=== PATIENT | male | born 1970 | race Caucasian/White ===

== ENCOUNTER 2016-10-01 19:53 | Emergency (ER) | payer OTHER ==
[2016-10-01 20:09] VITALS: BP 135/93; PULSE 88; RESP 18; TEMP 98.6
[2016-10-01] MEDS ORDERED: PROPARACAINE 0.5% OPHTH DROPS 15 ML BTL RIGHT EYE STA (20:10)
[2016-10-01] MEDS ORDERED: TOBRAMYCIN 0.3% OPHTH DROPS 5 ML BTL LEFT EYE STA (20:28)
--- NOTE | 2016-10-01 20:32 | ED ---
General Adult HPI - General Chief complaint: Eye Problems Stated complaint: FB Eye Time Seen by Provider: 10/01/16 20:10 Source: patient, RN notes reviewed Mode of arrival: ambulatory Limitations: no limitations - History of Present Illness Initial comments: Patient 46-year-old male who presents emergency room today with chief complaint of a foreign body to the left eye. 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 States felt like something got into his eye but he thought maybe it was just a stick welder's flash. Patient states that still having irritation today he can see something in his eye. States tetanus is up-to- date. Denies any other complaints or associated symptoms. Patient denies any recent fever, chills, shortness of breath, chest pain, back pain, abdominal pain , nausea or vomiting, numbness or tingling, dysuria or hematuria, constipation or diarrhea, headaches or visual changes, or any other complaints. - Related Data Previous Rx's Medication Instructions Recorded Docusate [Colace] 100 mg PO BID #20 cap 07/26/16 HYDROcodone/APAP 5-325MG [[place] 1 each PO Q6H PRN #30 tab 07/26/16 5-325] Ibuprofen [Motrin] 400 mg PO Q6HR PRN #30 tab 07/26/16 LORazepam [Ativan] 0.5 mg PO Q8HR PRN #20 tab 07/26/16 Nystatin 100,000 Unit/ml Susp 500,000 unit PO QID #60 cup 07/26/16 [Mycostatin Oral Susp] Pantoprazole [Protonix] 40 mg PO AC-BRKFST #15 tablet. 07/26/16 cloNIDine HCL [Catapres] 0.1 mg PO TID #90 tab 07/26/16 Tobramycin 0.3% Ophth Soln [Tobrex 1 - 2 drop BOTH EYES QID 7 Days 10/01/16 0.3% Ophth Soln] Allergies Allergy/AdvReac Type Severity Reaction Status Date / Time No Known Allergies Allergy Verified 09/19/16 09:00 Review of Systems ROS Statement: Those systems with pertinent positive or pertinent negative responses have been documented in the HPI. ROS Other: All systems not noted in ROS Statement are negative. Past Medical History Past Medical History: Osteoarthritis (OA) Additional Past Medical History / Comment(s): Ibs, degenerative disc disease, BACK PAIN, PAST FX L4-L5 VERTEBRE, KIDNEY STONE,HEAD INJURY/CONCUSSION, SEIZURES - BUT HAS'NT BEEN TAKING MEDS(D/T FINANCIAL REASON/COST), RECENTLY FINISHED 7 DAYS OF CIPRO FOR KIDNEY STONE?UTI,lt.index finger wound History of Any Multi-Drug Resistant Organisms: None Reported Past Surgical History: Cholecystectomy, Orthopedic Surgery Additional Past Surgical History / Comment(s): LT KNEE SCOPE,COLONOSCPY/ POLYPECTOMT(BENIGN) Past Anesthesia/Blood Transfusion Reactions: No Reported Reaction Past Psychological History: Depression, PTSD Additional Psychological History / Comment(s): Positive tobacco use, occasional marijuana use. Denies significant alcohol use. No international travel. Was in the [employer] and in the [employer]. 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 Pet cat within the home. Is not , may have children but is not sure Smoking Status: Current some day smoker Past Alcohol Use History: Occasional Additional Past Alcohol Use History / Comment(s): HAS SMOKED FOR 31 YEARS, 1 PPD Past Drug Use History: Marijuana Additional Drug Use History / Comment(s): DAILY USE - Past Family History Father Family Medical History: Diabetes Mellitus, Hyperlipidemia, Hypertension Mother Additional Family Medical History / Comment(s): ? ANUERYSM General Exam - General Exam Comments Initial Comments: General: The patient is awake and alert, in no distress, and does not appear acutely ill. Eye: Pupils are equal, round and reactive to light, extra-ocular movements are intact. No nystagmus. There is normal conjunctiva bilaterally. No signs of icterus. Ears, nose, mouth and throat: There are moist mucous membranes and no oral lesions. Neck: The neck is supple, there is no tenderness or JVD. Cardiovascular: There is a regular rate and rhythm. No murmur, rub or gallop is appreciated. Respiratory: Lungs are clear to auscultation, respirations are non-labored, breath sounds are equal. No wheezes, stridor, rales, or rhonchi. Gastrointestinal: Soft, non-distended, non-tender abdomen without masses or organomegaly noted. There is no rebound or guarding present. No CVA tenderness. Bowel sounds are unremarkable. Musculoskeletal: Normal ROM, no tenderness. Strength 5/5. Sensation intact. Pulses equal bilaterally 2+. Neurological: A&O x 3. CN II-XII intact, There are no obvious motor or sensory deficits. Coordination appears grossly intact. Speech is normal. Skin: Skin is warm and dry and no rashes or lesions are noted. Psychiatric: Cooperative, appropriate mood & affect, normal judgment. Limitations: no limitations Course Vital Signs 10/01/16 20:07 Temperature 98.6 F Pulse Rate 88 Respiratory 18 Rate Blood Pressure 135/93 O2 Sat by Pulse 97 Oximetry Procedures - Procedures Initial comment: Patient's left eye was anesthetized locally with proparacaine. This did relieve his symptoms. Patient's left eye was then stained with forcing checked underneath Thompson lamp revealing a metallic foreign body centrally over the pupil. Liberty brush was used to remove foreign body and rust ring. Patient tolerated well. Medical Decision Making - Medical Decision Making Patient advised follow-up with ophthalmology over the next 2 days of symptoms have not completely resolved. Advised return to emergency room for new concerns. Has been started on antibiotic drops in the emergency room. Disposition Clinical Impression: Corneal foreign body Disposition: HOME SELF-CARE Condition: Good Instructions: Eye Foreign Body (ED) Additional Instructions: Please follow-up the health spa manager in 2 days if symptoms are not completely resolved. Please use antibiotic drops as prescribed. Please return to emergency room for any other concerns. Prescriptions: Tobramycin 0.3% Ophth Soln [Tobrex 0.3% Ophth Soln] 1 - 2 drop BOTH EYES QID 7 Days Referrals: Mishel Chance MD [Primary Care Provider] - 1-2 days Fransico King MD [STAFF PHYSICIAN] - 1-2 days Time of Disposition: 20:30
== END 2016-10-01 20:43 | disposition home or self-care (01) ==
LOC: EC 19:53
DX: T15.02XA Foreign body in cornea, left eye, initial encounter (principal); F17.200 Nicotine dependence, unspecified, uncomplicated
CPT/HCPCS: 65220; 99283

== ENCOUNTER 2016-12-27 04:26 | Observation (INO) | payer OTHER ==
[2016-12-27] MEDS ORDERED: NITROGLYCERIN OINT 1 INCH/GM PACKET TOPICAL STA (04:37)
[2016-12-27] MEDS ORDERED: ASPIRIN 81 MG CHEW PO STA (04:37)
[2016-12-27] MEDS ORDERED: SODIUM CHLORIDE 0.9% 500 ML IV STA (04:37)
--- NOTE | 2016-12-27 04:41 | ED ---
General Adult HPI - General Chief complaint: Arrhythmia/Palpitations Stated complaint: cardiac concerns Time Seen by Provider: 12/27/16 04:26 Source: patient, RN notes reviewed Mode of arrival: ambulatory Limitations: no limitations - History of Present Illness Initial comments: This is a 46-year-old male presents emergency room complaining that he feels tightness in his chest feels heartbeat skipping and states his little pain in his left arm. Patient states it started about 20 minutes prior to arrival. Patient states he is a smoker but denies high blood pressure diabetes and high cholesterol. Patient denies any family history of her proximal. Patient denies any diaphoresis associated with this. Patient denies any shortness of breath or difficulty breathing. Patient denies any nausea with this. Patient denies abdominal pain patient denies any vomiting or diarrhea. Patient denies any recent fever chills or cough. Patient denies headache patient denies any numbness weakness per patient denies any lightheadedness dizziness or near syncopal episode. - Related Data Previous Rx's Medication Instructions Recorded Docusate [Colace] 100 mg PO BID #20 cap 07/26/16 HYDROcodone/APAP 5-325MG [[place] 1 each PO Q6H PRN #30 tab 07/26/16 5-325] Ibuprofen [Motrin] 400 mg PO Q6HR PRN #30 tab 07/26/16 LORazepam [Ativan] 0.5 mg PO Q8HR PRN #20 tab 07/26/16 Nystatin 100,000 Unit/ml Susp 500,000 unit PO QID #60 cup 07/26/16 [Mycostatin Oral Susp] Pantoprazole [Protonix] 40 mg PO AC-BRKFST #15 tablet.dr 07/26/16 cloNIDine HCL [Catapres] 0.1 mg PO TID #90 tab 07/26/16 Tobramycin 0.3% Ophth Soln [Tobrex 1 - 2 drop BOTH EYES QID 7 Days 10/01/16 0.3% Ophth Soln] Allergies Allergy/AdvReac Type Severity Reaction Status Date / Time No Known Allergies Allergy Verified 12/27/16 04:30 Review of Systems ROS Statement: Those systems with pertinent positive or pertinent negative responses have been documented in the HPI. ROS Other: All systems not noted in ROS Statement are negative. Past Medical History Past Medical History: Osteoarthritis (OA) Additional Past Medical History / Comment(s): Ibs, degenerative disc disease, BACK PAIN, PAST FX L4-L5 VERTEBRE, KIDNEY STONE,HEAD INJURY/CONCUSSION, SEIZURES - BUT HAS'NT BEEN TAKING MEDS(D/T FINANCIAL REASON/COST), RECENTLY FINISHED 7 DAYS OF CIPRO FOR KIDNEY STONE?UTI,lt.index finger wound History of Any Multi-Drug Resistant Organisms: None Reported Past Surgical History: Cholecystectomy, Orthopedic Surgery Additional Past Surgical History / Comment(s): LT KNEE SCOPE,COLONOSCPY/ POLYPECTOMT(BENIGN) Past Anesthesia/Blood Transfusion Reactions: No Reported Reaction Past Psychological History: Depression, PTSD Additional Psychological History / Comment(s): Positive tobacco use, occasional marijuana use. Denies significant alcohol use. No international travel. Was in the [employer] and [employer] and in the [employer]. 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 Pet cat within the home. Is not , may have children but is not sure Smoking Status: Current some day smoker Past Alcohol Use History: Occasional Additional Past Alcohol Use History / Comment(s): HAS SMOKED FOR 31 YEARS, 1 PPD Past Drug Use History: Marijuana Additional Drug Use History / Comment(s): DAILY USE - Past Family History Father Family Medical History: Diabetes Mellitus, Hyperlipidemia, Hypertension Mother Additional Family Medical History / Comment(s): ? ANUERYSM General Exam - General Exam Comments Initial Comments: GENERAL: Patient is well-developed and well-nourished. Patient is nontoxic and well- hydrated and is in mild distress. ENT: Neck is soft and supple. No significant lymphadenopathy is noted. Oropharynx is clear. Moist mucous membranes. Neck has full range of motion without eliciting any pain. EYES: The sclera were anicteric and conjunctiva were pink and moist. Extraocular movements were intact and pupils were equal round and reactive to light. Eyelids were unremarkable. PULMONARY: Unlabored respirations. Good breath sounds bilaterally. No audible rales rhonchi or wheezing was noted. CARDIOVASCULAR: There is a regular rate and rhythm without any murmurs gallops or rubs. ABDOMEN: Soft and nontender with normal bowel sounds. No palpable organomegaly was noted. There is no palpable pulsatile mass. SKIN: Skin is clear with no lesions or rashes and otherwise unremarkable. NEUROLOGIC: Patient is alert and oriented x3. Cranial nerves II through XII are grossly intact. Motor and sensory are also intact. Normal speech, volume and content. Symmetrical smile. MUSCULOSKELETAL: Normal extremities with adequate strength and full range of motion. No lower extremity swelling or edema. No calf tenderness. LYMPHATICS: No significant lymphadenopathy is noted PSYCHIATRIC: Normal psychiatric evaluation. Normal interpersonal interactions appears functionally intact in deals appropriately with others. No signs of depression. No signs of anxiety. Limitations: no limitations Course Vital Signs 12/27/16 12/27/16 04:27 04:50 Temperature 98.6 F Pulse Rate 85 75 Respiratory 16 18 Rate Blood Pressure 199/111 157/92 O2 Sat by Pulse 100 96 Oximetry Medical Decision Making - Medical Decision Making EKG shows a sinus rhythm with occasional PAC at 72 bpm [place] interval 158 QRSs 110 QT intervals 412 QTC is 451. Patient EKG shows no ST segment elevation or depression. Patient's chest x-ray shows no acute abnormality. Patient's pain seemed to subside a little after the patient received nitroglycerin paste. I spoke with Dr. Correa he agreed to admit the patient admitted the patient and wrote admitting orders and consult cardiology - Lab Data Result diagrams: 12/27/16 04:45 12/27/16 04:45 Lab Results 12/27/16 12/27/16 12/27/16 Range/Units 04:45 04:45 04:45 WBC 11.7 H (3.8-10.6) k/uL RBC 4.80 (4.30-5.90) m/uL Hgb 15.7 (13.0-17.5) gm/dL Hct 45.4 (39.0-53.0) % MCV 94.5 (80.0-100.0) fL MCH 32.6 (25.0-35.0) pg MCHC 34.5 (31.0-37.0) g/dL RDW 13.0 (11.5-15.5) % Plt Count 278 (150-450) k/uL Neutrophils % 52 % Lymphocytes % 35 % Monocytes % 7 % Eosinophils % 3 % Basophils % 1 % Neutrophils # 6.1 (1.3-7.7) k/uL Lymphocytes # 4.1 (1.0-4.8) k/uL Monocytes # 0.8 (0-1.0) k/uL Eosinophils # 0.4 (0-0.7) k/uL Basophils # 0.1 (0-0.2) k/uL PT (9.0-12.0) sec INR (<1.1) APTT (22.0-30.0) sec Sodium 140 (137-145) mmol/L Potassium 3.6 (3.5-5.1) mmol/L Chloride 105 (98-107) mmol/L Carbon Dioxide 23 (22-30) mmol/L Anion Gap 12 mmol/L BUN 8 L (9-20) mg/dL Creatinine 0.90 (0.66-1.25) mg/dL Est GFR (MDRD) Af Amer >60 (>60 ml/min/1.73 sqM) Est GFR (MDRD) Non-Af >60 (>60 ml/min/1.73 sqM) Glucose 82 (74-99) mg/dL Calcium 9.3 (8.4-10.2) mg/dL Magnesium 1.9 (1.6-2.3) mg/dL Total Bilirubin 0.4 (0.2-1.3) mg/dL AST 21 (17-59) U/L ALT 32 (21-72) U/L Alkaline Phosphatase 70 (38-126) U/L Total Creatine Kinase 143 (55-170) U/L CK-MB (CK-2) 0.9 (0.0-2.4) ng/mL CK-MB (CK-2) Rel Index 0.6 Troponin I <0.012 (0.000-0.034) ng/mL Total Protein 7.0 (6.3-8.2) g/dL Albumin 4.1 (3.5-5.0) g/dL TSH 4.510 (0.465-4.680) mIU/L Free T4 1.29 (0.78-2.19) ng/dL Urine Opiates Screen (NotDetected) Ur Oxycodone Screen (NotDetected) Urine Methadone Screen (NotDetected) Ur Propoxyphene Screen (NotDetected) Ur Barbiturates Screen (NotDetected) U Tricyclic Antidepress (NotDetected) Ur Phencyclidine Scrn (NotDetected) Ur Amphetamines Screen (NotDetected) U Methamphetamines Scrn (NotDetected) U Benzodiazepines Scrn (NotDetected) Urine Cocaine Screen (NotDetected) U Marijuana (THC) Screen (NotDetected) 12/27/16 12/27/16 Range/Units 04:45 05:10 WBC (3.8-10.6) k/uL RBC (4.30-5.90) m/uL Hgb (13.0-17.5) gm/dL Hct (39.0-53.0) % MCV (80.0-100.0) fL MCH (25.0-35.0) pg MCHC (31.0-37.0) g/dL RDW (11.5-15.5) % Plt Count (150-450) k/uL Neutrophils % % Lymphocytes % % Monocytes % % Eosinophils % % Basophils % % Neutrophils # (1.3-7.7) k/uL Lymphocytes # (1.0-4.8) k/uL Monocytes # (0-1.0) k/uL Eosinophils # (0-0.7) k/uL Basophils # (0-0.2) k/uL PT 10.9 (9.0-12.0) sec INR 1.1 (<1.1) APTT 26.2 (22.0-30.0) sec Sodium (137-145) mmol/L Potassium (3.5-5.1) mmol/L Chloride (98-107) mmol/L Carbon Dioxide (22-30) mmol/L Anion Gap mmol/L BUN (9-20) mg/dL Creatinine (0.66-1.25) mg/dL Est GFR (MDRD) Af Amer (>60 ml/min/1.73 sqM) Est GFR (MDRD) Non-Af (>60 ml/min/1.73 sqM) Glucose (74-99) mg/dL Calcium (8.4-10.2) mg/dL Magnesium (1.6-2.3) mg/dL Total Bilirubin (0.2-1.3) mg/dL AST (17-59) U/L ALT (21-72) U/L Alkaline Phosphatase (38-126) U/L Total Creatine Kinase (55-170) U/L CK-MB (CK-2) (0.0-2.4) ng/mL CK-MB (CK-2) Rel Index Troponin I (0.000-0.034) ng/mL Total Protein (6.3-8.2) g/dL Albumin (3.5-5.0) g/dL TSH (0.465-4.680) mIU/L Free T4 (0.78-2.19) ng/dL Urine Opiates Screen Not Detected (NotDetected) Ur Oxycodone Screen Not Detected (NotDetected) Urine Methadone Screen Not Detected (NotDetected) Ur Propoxyphene Screen Not Detected (NotDetected) Ur Barbiturates Screen Not Detected (NotDetected) U Tricyclic Antidepress Not Detected (NotDetected) Ur Phencyclidine Scrn Not Detected (NotDetected) Ur Amphetamines Screen Not Detected (NotDetected) U Methamphetamines Scrn Not Detected (NotDetected) U Benzodiazepines Scrn Not Detected (NotDetected) Urine Cocaine Screen Not Detected (NotDetected) U Marijuana (THC) Screen Detected H (NotDetected) Disposition Clinical Impression: Chest pain, PAC (premature atrial contraction) Disposition: ADMITTED IP TO THIS HOSP Referrals: Mishel Chance MD [Primary Care Provider] - 1-2 days Time of Disposition: 06:08
[2016-12-27 05:04] LABS: Basophils # (A) 0.1 k/uL (0-0.2); Basophils % (A) 1 %; CH 33.2; CHCM 35.2; Eosinophils # (A) 0.4 k/uL (0-0.7); Eosinophils % (A) 3 %; HCT 45.4 % (39.0-53.0); HDW 2.44; HGB 15.7 gm/dL (13.0-17.5); Luc # (Auto) 0.28; Luc % (Auto) 2; Lymphocytes # (A) 4.1 k/uL (1.0-4.8); Lymphocytes % (A) 35 %; MCH 32.6 pg (25.0-35.0); MCHC 34.5 g/dL (31.0-37.0); MCV 94.5 fL (80.0-100.0); Mean Platelet Volume 6.8; Monocytes # (A) 0.8 k/uL (0-1.0); Monocytes % (A) 7 %; Neutrophils # (A) 6.1 k/uL (1.3-7.7); Neutrophils % (A) 52 %; WBC 11.7 k/uL (3.8-10.6); WBC (Perox) 11.35
[2016-12-27 05:13] LABS: ALT 32 U/L (21-72); AST 21 U/L (17-59); Alkaline Phosphatase 70 U/L (38-126); Anion Gap 12 mmol/L; Blood Urea Nitrogen 8 mg/dL (9-20); Calcium 9.3 mg/dL (8.4-10.2); Carbon Dioxide 23 mmol/L (22-30); Chloride 105 mmol/L (98-107); Glucose 82 mg/dL (74-99); Magnesium 1.9 mg/dL (1.6-2.3); Non-African American GFR(MDRD) >60 (>60 ml/min/1.73 sqM); Potassium 3.6 mmol/L (3.5-5.1); Sodium 140 mmol/L (137-145); Total Bilirubin 0.4 mg/dL (0.2-1.3)
[2016-12-27 05:14] LABS: INR 1.1 (<1.1); Partial Thromboplastin Time 26.2 sec (22.0-30.0); Prothrombin Time 10.9 sec (9.0-12.0)
[2016-12-27 05:24] LABS: Creatine Kinase 143 U/L (55-170)
[2016-12-27 05:37] LABS: Creatine Kinase MB 0.9 ng/mL (0.0-2.4); Troponin I <0.012 ng/mL (0.000-0.034)
--- NOTE | 2016-12-27 06:00 | XR ---
EXAM: XR Chest, 2 Views CLINICAL HISTORY: Reason: Chest Pain TECHNIQUE: Frontal and lateral views of the chest. COMPARISON: No relevant prior studies available. FINDINGS: Lungs: Unremarkable. No consolidation. Pleural space: Unremarkable. No pleural effusions. No pneumothorax. Heart: Unremarkable. No cardiomegaly. Mediastinum: Unremarkable. Bones/joints: Unremarkable. IMPRESSION: No acute cardiopulmonary process.
[2016-12-27] MEDS ORDERED: NITROGLYCERIN SL TABS 0.4 MG TAB SUBLINGUAL PRN (06:08)
[2016-12-27 11:40] LABS: Creatine Kinase 103 U/L (55-170)
[2016-12-27 11:51] LABS: Creatine Kinase MB 0.8 ng/mL (0.0-2.4); Troponin I <0.012 ng/mL (0.000-0.034)
--- NOTE | 2016-12-27 13:53 | P.HPIM ---
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 Patient does smoke a pack of cigarettes daily and denies having any significant family medical history of premature cardiac disease EKG in the emergency room showed diagnostic criteria for LVH however no ST changes were noted cardiac enzymes 1 was negative states that he also has some associated irregular heartbeat feeling since onset of this states the pain is pressure-like last for a few minutes no alleviating or exacerbating factors are reported at this time Review of Systems All systems: negative (Noted in HPI) Past Medical History Past Medical History: Osteoarthritis (OA), Renal Disease, Seizure Disorder Additional Past Medical History / Comment(s): Ibs, degenerative disc disease, BACK PAIN, PAST FX L4-L5 VERTEBRE, KIDNEY STONE,HEAD INJURY/CONCUSSION, SEIZURES - BUT HAS'NT BEEN TAKING MEDS(D/T FINANCIAL REASON/COST), RECENTLY FINISHED 7 DAYS OF CIPRO FOR KIDNEY STONE?UTI,lt.index finger wound History of Any Multi-Drug Resistant Organisms: None Reported Past Surgical History: Cholecystectomy, Orthopedic Surgery Additional Past Surgical History / Comment(s): LT KNEE SCOPE,COLONOSCPY/ POLYPECTOMT(BENIGN) Past Anesthesia/Blood Transfusion Reactions: No Reported Reaction Past Psychological History: Depression, PTSD Additional Psychological History / Comment(s): Positive tobacco use, occasional marijuana use. Denies significant alcohol use. No international travel. Was in the [employer] and [employer] and in the [employer]. 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 Pet cat within the home. Is not , may have children but is not sure Smoking Status: Current some day smoker Past Alcohol Use History: Occasional Additional Past Alcohol Use History / Comment(s): HAS SMOKED FOR 31 YEARS, 1 PPD Past Drug Use History: Marijuana Additional Drug Use History / Comment(s): DAILY USE - Past Family History Father Family Medical History: Diabetes Mellitus, Hyperlipidemia, Hypertension Mother Additional Family Medical History / Comment(s): ? ANUERYSM Medications and Allergies Home Medications Medication Instructions Recorded Confirmed Type No Known Home Medications [No 12/27/16 12/27/16 History Known Home Medications] Allergies Allergy/AdvReac Type Severity Reaction Status Date / Time No Known Allergies Allergy Verified 12/27/16 07:58 Physical Exam Vitals: Vital Signs Temp Pulse Pulse Resp BP BP Pulse Ox 12/27/16 11:39 97.8 F 60 12 110/71 98 12/27/16 07:13 97.6 F 60 18 113/73 95 12/27/16 06:12 61 18 118/67 97 12/27/16 05:42 67 18 123/88 96 12/27/16 04:50 75 18 157/92 96 12/27/16 04:27 98.6 F 85 16 199/111 100 Intake and Output 12/26/16 12/27/16 12/27/16 22:59 06:59 14:59 Other: Weight 97.069 kg 94.8 kg Patient Weight 12/28/16 06:59 Weight 94.8 kg Physical exam Gen. appearance oriented 3 in no distress Neck is supple no JVD Lungs good air entry clear to auscultation no rhonchi or wheezing Heart S1-S2 heard regular rate and rhythm no murmurs appreciated Abdomen is soft nontender no organomegaly bowel sounds are intact Neurologically cranial nerves II-12 grossly intact no focal motor or sensory deficits noted Skin no abnormalities appreciated Results CBC & Chem 7: 12/27/16 04:45 12/27/16 04:45 Labs: Abnormal Lab Results - Last 24 Hours (Table) 12/27/16 12/27/16 12/27/16 Range/Units 04:45 04:45 05:10 WBC 11.7 H (3.8-10.6) k/uL BUN 8 L (9-20) mg/dL U Marijuana (THC) Screen Detected H (NotDetected) Thrombosis Risk Factor Assmnt - Choose All That Apply Any of the Below Risk Factors Present?: Yes Each Factor Represents 1 point: Age 41-60 years Other Risk Factors: No Thrombosis Risk Factor Assessment Total Risk Factor Score: 1 Thrombosis Risk Factor Assessment Level: Low Risk Assessment and Plan Plan: #1 atypical chest pain rule out ACS #2 PTSD #3 ongoing tobacco use #4 osteoarthritis #5 accelerated hypertension Plan Continue telemetry monitoring cardiac enzymes 3 to be done Patient apparently was noted to have a blood pressure around 200 systolic on initial evaluation currently blood pressure is 110 systolic and has not received any medications at this time Patient denies using any caffeine or any other stimulants. Marijuana was noted in his drug screen We'll obtain a cardiology consultation as well
[2016-12-27] MEDS: NITROGLYCERIN OINT 1 INCH/GM PACKET TOPICAL SCH ×3 (15:25→23:36)
[2016-12-27 17:23] LABS: Creatine Kinase 89 U/L (55-170)
[2016-12-27 17:30] LABS: Creatine Kinase MB 0.4 ng/mL (0.0-2.4); Troponin I <0.012 ng/mL (0.000-0.034)
[2016-12-27] MEDS: ACETAMINOPHEN TAB 325 MG TAB PO PRN (20:51)
[2016-12-28] MEDS: NITROGLYCERIN OINT 1 INCH/GM PACKET TOPICAL SCH ×2 (05:50→12:41)
[2016-12-28] MEDS: ACETAMINOPHEN TAB 325 MG TAB PO PRN (06:57)
[2016-12-28] MEDS ORDERED: ASPIRIN 325 MG TAB PO SCH (09:00)
--- NOTE | 2016-12-28 11:06 | CONS ---
DATE OF CONSULTATION: Mr. Hickman is a 46-year-old gentleman who was admitted for recurrent episodes of chest discomfort. He was mopping the floor at work. The pain went into the left axilla. He took 2 aspirins, the pain did not improve and therefore he came to the hospital. In the hospital, he has 3 sets of cardiac enzymes which were normal. His 12-lead ECG did not show any ST segment abnormalities upon admission, 3 set of cardiac enzymes so far are normal. REVIEW OF SYSTEMS: No fever, chills, or rigors. No cough or expectoration. No nausea, vomiting or diarrhea. No hematuria or dysuria. No strokes or seizures. No skin lesions. No musculoskeletal complaints. Past medical history of osteoarthritis, renal disease, seizure disorder. PAST SURGICAL HISTORY: Cholecystectomy, orthopedic surgery and arthroscopy. PAST PSYCHOLOGICAL HISTORY: Depression and PTSD. SOCIAL HISTORY: Smoking and marijuana use daily. FAMILY HISTORY: He is not . He may have a few children but he is not sure. Family history of diabetes, hypertension, dyslipidemia. Denies personal history of diabetes, hypertension, and dyslipidemia. On admission, his blood pressure is elevated but now the blood pressure is in the normal range. No home medications. ALLERGIES: No known drug allergies. On examination, he is lying comfortably, pulse rate is in the 60s. Blood pressure is normal, 110/71 mmHg. Head and neck examination is normal. Heart sounds are normal. Lungs are clear. No rhonchi. No crackles. Heart sounds S1, S2 normal. ABDOMEN: Soft, nontender. EXTREMITIES: Warm. No edema. IMPRESSION: 1. Recurrent chest discomfort with normal cardiac rhythm, normal ECG. 2. History of smoking history. 3. History of marijuana use. SUGGEST: If exercise stress echo within normal, he may go home and follow up with his primary care physician. He needs to stop smoking.
--- NOTE | 2016-12-28 12:17 | ECHOS ---
DATE OF SERVICE: 12/28/2016 AGE: 46Y SEX: M HT: 71" WT: 208 lbs. Protocol Anderson: X Others: Stress Echo Stage: 3 Dur. of Exercise: 8:00 *Heart Rate Blood Pressure *Rest: 74 Rest: 112/66 * *Max. Achieved: 139 Maximum BP: 206/77 85% PMHR: 147 100% PMHR: 173 *METS: 9.1 INDICATIONS: Chest pain. MEDICATIONS: - Patient was exercised for a total period of 8 minutes. Peak heart rate of 139 was achieved. Maximum blood pressure of 206/77 mmHg was noted. Test was terminated because patient got short of breath. Patient also complained of sharp chest pain, which subsided immediately in the postexercise. Resting EKG shows normal sinus rhythm with normal AK interval and QRS duration and normal ST-T waves. No ST segment depression suggestive of ischemia was noted. The baseline echocardiographic images reveal a normal left ventricular chamber size with normal left ventricular systolic function. In the immediate postexercise period, normal increase in the wall thickness and contractility is noted. FINAL IMPRESSION: 1. This stress echocardiographic study is negative for stress-induced ischemia. 2. Patient's exercise tolerance is below average. 3. Patient complained of atypical chest pain at the peak exercise, which was a sharp pain, subsided immediately in the postexercise.
[2016-12-28 12:29] VITALS: BP 132/79; PULSE 74; RESP 16; TEMP 98.6
--- NOTE | 2016-12-28 17:38 | P.DS ---
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 Patient does smoke a pack of cigarettes daily and denies having any significant family medical history of premature cardiac disease EKG in the emergency room showed diagnostic criteria for LVH however no ST changes were noted cardiac enzymes 1 was negative states that he also has some associated irregular heartbeat feeling since onset of this states the pain is pressure-like last for a few minutes no alleviating or exacerbating factors are reported at this time 12/28/16 doing well Physical exam Gen. appearance oriented 3 in no distress Neck is supple no JVD Lungs good air entry clear to auscultation no rhonchi or wheezing Heart S1-S2 heard regular rate and rhythm no murmurs appreciated Abdomen is soft nontender no organomegaly bowel sounds are intact Neurologically cranial nerves II-12 grossly intact no focal motor or sensory deficits noted Skin no abnormalities appreciated Assessment and Plan Plan: #1 atypical chest pain rule out ACS #2 PTSD #3 ongoing tobacco use #4 osteoarthritis #5 accelerated hypertension cardiac enzymes were negative stress echo, was negative pt did have some chest pain on exertion and poor exercise tolerance discussed smoking cessation Plan - Discharge Summary New Discharge Prescriptions: Aspirin EC [Ecotrin Low Dose] 81 mg PO DAILY #30 tablet. Discharge Medication List Aspirin EC [Ecotrin Low Dose] 81 mg PO DAILY #30 tablet. 12/28/16 [Rx] Follow up Appointment(s)/Referral(s): Mishel Chance MD [Primary Care Provider] - 1-2 days Discharge Disposition: HOME SELF-CARE
--- NOTE | 2016-12-30 15:41 | ECHOF ---
Referral Reason:chest pain MEASUREMENTS -------- HEIGHT: 180.3 cm WEIGHT: 94.3 kg BP: 110/71 RVIDd: 2.4 cm (< 3.3) IVSd: 1.4 cm (0.6 - 1.1) LVIDd: 5.3 cm (3.9 - 5.3) LVPWd: 1.4 cm (0.6 - 1.1) IVSs: 1.9 cm LVIDs: 2.8 cm LVPWs: 2.0 cm Ao Diam: 3.1 cm (2.0 - 3.7) AV Cusp: 1.2 cm (1.5 - 2.6) LA Diam: 2.3 cm (2.7 - 3.8) MV EXCURSION: 7.983 mm (> 18.000) MV EF SLOPE: 45 mm/s (70 - 150) EPSS: 0.3 cm MV E Jamey: 0.66 m/s MV DecT: 255 ms MV A Jamey: 0.82 m/s MV E/A Ratio: 0.81 RAP: 5.00 mmHg RVSP: 10.57 mmHg FINDINGS -------- Sinus rhythm. This was a technically adequate study. There is mild concentric left ventricular hypertrophy. Overall left ventricular systolic function is normal with, an EF between 60 - 65 %. The right ventricle is normal in size and function. Normal LA size by volume 22+/-6 ml/m2. The right atrium is normal in size. Aortic valve is trileaflet and is mildly thickened. Trace amount of aortic regurgitation. There is no evidence of aortic stenosis. The mitral valve leaflets are mildly thickened. There is trace to mild mitral regurgitation. Trace tricuspid regurgitation present. There is no evidence of pulmonary hypertension. The right ventricular systolic pressure, as measured by Doppler, is 10.57mmHg. The pulmonic valve was not well visualized. The aortic root size is normal. There is no pericardial effusion. CONCLUSIONS -------- 1. Sinus rhythm. 2. There is no evidence of pulmonary hypertension. 3. The right ventricular systolic pressure, as measured by Doppler, is 10.57mmHg. 4. The aortic root size is normal. 5. There is no pericardial effusion. 6. There is mild concentric left ventricular hypertrophy. 7. Overall left ventricular systolic function is normal with, an EF between 60 - 65 %. 8. Normal LA size by volume 22+/-6 ml/m2. 9. Aortic valve is trileaflet and is mildly thickened. 10. Trace amount of aortic regurgitation. 11. The mitral valve leaflets are mildly thickened. 12. There is trace to mild mitral regurgitation. 13. Trace tricuspid regurgitation present. SENIOR CLINICAL SAS PROGRAMMER: Zafar Feliz RDCS
== END 2016-12-28 15:30 | disposition home or self-care (01) ==
LOC: EC 04:26 → 3OBS 06:08
PROVIDERS: ADMIT Internal Medicine; ATTEND Internal Medicine
DX: R07.89 Other chest pain (principal); R00.9 Unspecified abnormalities of heart beat; F43.10 Post-traumatic stress disorder, unspecified; F17.210 Nicotine dependence, cigarettes, uncomplicated; I10 Essential (primary) hypertension; M19.90 Unspecified osteoarthritis, unspecified site; Z83.3 Family history of diabetes mellitus; Z82.49 Family history of ischemic heart disease and other diseases of the circulatory system; Y99.0 Civilian activity done for income or pay; Y93.E5 Activity, floor mopping and cleaning
CPT/HCPCS: 36415; 93005; 93350; 93017; 93306; 84439; 80061; 80053; 84443 ×2; 82550; 82553; 83735; 84075; 84450; 84460; 84484; 85025; 85610; 85730; 80306; 71020; 99285; 96360; G0378 ×2; Q9957

== ENCOUNTER 2017-09-28 10:21 | Emergency (ER) | payer OTHER ==
[2017-09-28 10:25] VITALS: TEMP 97.3
[2017-09-28] MEDS ORDERED: RX INFO: IV CONTRAST WAS GIVEN 1 EACH MISC MISCELLANE PRN (10:46)
--- NOTE | 2017-09-28 10:49 | ED ---
General Adult HPI - General Chief complaint: Abdominal Pain Stated complaint: bleeding,abdominal pain Time Seen by Provider: 09/28/17 10:30 Source: patient, RN notes reviewed Mode of arrival: wheelchair Limitations: no limitations - History of Present Illness Initial comments: 47-year-old male presents to the emergency department with a chief complaint of abdominal pain and cramping. Patient states this started today he felt like he had a bowel movement he noticed it was bloody in nature. He states he's had this twice before and he was told it was just irritable bowel syndrome. He denies any nausea vomiting. He states he did have a low-grade fever before that he did have Tylenol before coming. Patient states he was concerned due to his continued discomfort so he thought that he should be evaluated. Patient denies any other symptoms at this time. Patient denies any recent fever, chills , shortness of breath, chest pain, back pain, nausea vomiting, numbness or tingling, dysuria or hematuria, constipation, headaches or visual changes, or any other current symptoms. - Related Data Home Medications Medication Instructions Recorded Confirmed No Known Home Medications [No 09/28/17 09/28/17 Known Home Medications] Allergies Allergy/AdvReac Type Severity Reaction Status Date / Time No Known Allergies Allergy Verified 09/28/17 10:41 Review of Systems ROS Statement: Those systems with pertinent positive or pertinent negative responses have been documented in the HPI. ROS Other: All systems not noted in ROS Statement are negative. Past Medical History Past Medical History: Osteoarthritis (OA), Renal Disease, Seizure Disorder Additional Past Medical History / Comment(s): Ibs, degenerative disc disease, BACK PAIN, PAST FX L4-L5 VERTEBRE, KIDNEY STONE,HEAD INJURY/CONCUSSION, SEIZURES - BUT HAS'NT BEEN TAKING MEDS(D/T FINANCIAL REASON/COST), RECENTLY FINISHED 7 DAYS OF CIPRO FOR KIDNEY STONE?UTI,lt.index finger wound History of Any Multi-Drug Resistant Organisms: None Reported Past Surgical History: Cholecystectomy, Orthopedic Surgery Additional Past Surgical History / Comment(s): LT KNEE SCOPE,COLONOSCPY/ POLYPECTOMT(BENIGN) Past Anesthesia/Blood Transfusion Reactions: No Reported Reaction Past Psychological History: Depression, PTSD Smoking Status: Current some day smoker Past Alcohol Use History: Occasional Past Drug Use History: Marijuana - Past Family History Father Family Medical History: Diabetes Mellitus, Hyperlipidemia, Hypertension Mother Additional Family Medical History / Comment(s): ? ANUERYSM General Exam - General Exam Comments Initial Comments: General: The patient is awake and alert, in no distress, and does not appear acutely ill. Eye: Pupils are equal, round and reactive to light, extra-ocular movements are intact; there is normal conjunctiva bilaterally. No signs of icterus. Ears, nose, mouth and throat: There are moist mucous membranes. Neck: The neck is supple, there is no tenderness. Cardiovascular: There is a regular rate and rhythm. No murmur, rub or gallop is appreciated. Respiratory: Lungs are clear to auscultation, respirations are non-labored, breath sounds are equal. No wheezes, stridor, rales, or rhonchi. Gastrointestinal: Soft, non-distended, bilateral lower abdominal tenderness of the abdomen without masses or organomegaly noted. There is no rebound or guarding present. No CVA tenderness. Bowel sounds are unremarkable. Back: There is no tenderness to palpation in the midline. There is no obvious deformity. No rashes noted. Musculoskeletal: Normal ROM, no tenderness, There is no pedal edema. There is no calf tenderness or swelling. Sensation intact. Pulses equal bilaterally 2+. Neurological: CN II-XII intact, There are no obvious motor or sensory deficits. Coordination appears grossly intact. Speech is normal. Skin: Skin is warm and dry and no rashes or lesions are noted. Psychiatric: Cooperative, appropriate mood & affect, normal judgment. Limitations: no limitations Course Vital Signs 09/28/17 09/28/17 09/28/17 10:22 11:25 12:52 Temperature 97.3 F L Pulse Rate 84 74 68 Respiratory 18 17 20 Rate Blood Pressure 148/92 139/98 137/88 O2 Sat by Pulse 99 97 96 Oximetry Medical Decision Making - Medical Decision Making 47-year-old male presents for abdominal pain. At this time patient's lab work is been reviewed as well as imaging. This time we did discuss that he continued follow-up with GI and he is given their information. We did discuss return parameters all questions. Patient stated that he understood and he is in agreement this plan. Patient has had no evidence of GI bleed. The emergency department. We are pending stool culture. At this time the patient will be discharged. - Lab Data Result diagrams: 09/28/17 11:11 09/28/17 11:11 Lab Results 09/28/17 09/28/17 09/28/17 Range/Units 11:01 11:11 11:11 WBC 11.5 H (3.8-10.6) k/uL RBC 5.45 (4.30-5.90) m/uL Hgb 17.2 (13.0-17.5) gm/dL Hct 52.1 (39.0-53.0) % MCV 95.7 (80.0-100.0) fL MCH 31.6 (25.0-35.0) pg MCHC 33.1 (31.0-37.0) g/dL RDW 12.4 (11.5-15.5) % Plt Count 277 (150-450) k/uL Neutrophils % 63 % Lymphocytes % 26 % Monocytes % 7 % Eosinophils % 2 % Basophils % 1 % Neutrophils # 7.2 (1.3-7.7) k/uL Lymphocytes # 3.0 (1.0-4.8) k/uL Monocytes # 0.8 (0-1.0) k/uL Eosinophils # 0.2 (0-0.7) k/uL Basophils # 0.1 (0-0.2) k/uL PT (9.0-12.0) sec INR (<1.2) APTT (22.0-30.0) sec Sodium (137-145) mmol/L Potassium (3.5-5.1) mmol/L Chloride (98-107) mmol/L Carbon Dioxide (22-30) mmol/L Anion Gap mmol/L BUN (9-20) mg/dL Creatinine (0.66-1.25) mg/dL Est GFR (MDRD) Af Amer (>60 ml/min/1.73 sqM) Est GFR (MDRD) Non-Af (>60 ml/min/1.73 sqM) Glucose (74-99) mg/dL Plasma Lactic Acid Obi (0.7-2.0) mmol/L Calcium (8.4-10.2) mg/dL Total Bilirubin (0.2-1.3) mg/dL AST (17-59) U/L ALT (21-72) U/L Alkaline Phosphatase (38-126) U/L Total Protein (6.3-8.2) g/dL Albumin (3.5-5.0) g/dL Urine Color Urine Appearance (Clear) Urine pH (5.0-8.0) Ur Specific [place] (1.001-1.035) Urine Protein (Negative) Urine Glucose (UA) (Negative) Urine Ketones (Negative) Urine Blood (Negative) Urine Nitrite (Negative) Urine Bilirubin (Negative) Urine Urobilinogen (<2.0) mg/dL Ur Leukocyte Esterase (Negative) Stool Occult Blood Negative (Negative) Blood Type A Positive Blood Type Recheck A Pos Antibody Screen NEGATIVE Spec Expiration Date 10/01/2017 - 231009/28/17 09/28/17 09/28/17 Range/Units 11:11 11:11 11:11 WBC (3.8-10.6) k/uL RBC (4.30-5.90) m/uL Hgb (13.0-17.5) gm/dL Hct (39.0-53.0) % MCV (80.0-100.0) fL MCH (25.0-35.0) pg MCHC (31.0-37.0) g/dL RDW (11.5-15.5) % Plt Count (150-450) k/uL Neutrophils % % Lymphocytes % % Monocytes % % Eosinophils % % Basophils % % Neutrophils # (1.3-7.7) k/uL Lymphocytes # (1.0-4.8) k/uL Monocytes # (0-1.0) k/uL Eosinophils # (0-0.7) k/uL Basophils # (0-0.2) k/uL PT 10.5 (9.0-12.0) sec INR 1.1 (<1.2) APTT 24.5 (22.0-30.0) sec Sodium 140 (137-145) mmol/L Potassium 4.5 (3.5-5.1) mmol/L Chloride 105 (98-107) mmol/L Carbon Dioxide 26 (22-30) mmol/L Anion Gap 9 mmol/L BUN 10 (9-20) mg/dL Creatinine 0.80 (0.66-1.25) mg/dL Est GFR (MDRD) Af Amer >60 (>60 ml/min/1.73 sqM) Est GFR (MDRD) Non-Af >60 (>60 ml/min/1.73 sqM) Glucose 89 (74-99) mg/dL Plasma Lactic Acid Obi 1.1 (0.7-2.0) mmol/L Calcium 10.1 (8.4-10.2) mg/dL Total Bilirubin 0.5 (0.2-1.3) mg/dL AST 20 (17-59) U/L ALT 36 (21-72) U/L Alkaline Phosphatase 63 (38-126) U/L Total Protein 7.0 (6.3-8.2) g/dL Albumin 4.1 (3.5-5.0) g/dL Urine Color Urine Appearance (Clear) Urine pH (5.0-8.0) Ur Specific [place] (1.001-1.035) Urine Protein (Negative) Urine Glucose (UA) (Negative) Urine Ketones (Negative) Urine Blood (Negative) Urine Nitrite (Negative) Urine Bilirubin (Negative) Urine Urobilinogen (<2.0) mg/dL Ur Leukocyte Esterase (Negative) Stool Occult Blood (Negative) Blood Type Blood Type Recheck Antibody Screen Spec Expiration Date 09/28/17 Range/Units 11:11 WBC (3.8-10.6) k/uL RBC (4.30-5.90) m/uL Hgb (13.0-17.5) gm/dL Hct (39.0-53.0) % MCV (80.0-100.0) fL MCH (25.0-35.0) pg MCHC (31.0-37.0) g/dL RDW (11.5-15.5) % Plt Count (150-450) k/uL Neutrophils % % Lymphocytes % % Monocytes % % Eosinophils % % Basophils % % Neutrophils # (1.3-7.7) k/uL Lymphocytes # (1.0-4.8) k/uL Monocytes # (0-1.0) k/uL Eosinophils # (0-0.7) k/uL Basophils # (0-0.2) k/uL PT (9.0-12.0) sec INR (<1.2) APTT (22.0-30.0) sec Sodium (137-145) mmol/L Potassium (3.5-5.1) mmol/L Chloride (98-107) mmol/L Carbon Dioxide (22-30) mmol/L Anion Gap mmol/L BUN (9-20) mg/dL Creatinine (0.66-1.25) mg/dL Est GFR (MDRD) Af Amer (>60 ml/min/1.73 sqM) Est GFR (MDRD) Non-Af (>60 ml/min/1.73 sqM) Glucose (74-99) mg/dL Plasma Lactic Acid Obi (0.7-2.0) mmol/L Calcium (8.4-10.2) mg/dL Total Bilirubin (0.2-1.3) mg/dL AST (17-59) U/L ALT (21-72) U/L Alkaline Phosphatase (38-126) U/L Total Protein (6.3-8.2) g/dL Albumin (3.5-5.0) g/dL Urine Color Yellow Urine Appearance Clear (Clear) Urine pH 7.5 (5.0-8.0) Ur Specific [place] 1.006 (1.001-1.035) Urine Protein Negative (Negative) Urine Glucose (UA) Negative (Negative) Urine Ketones Negative (Negative) Urine Blood Negative (Negative) Urine Nitrite Negative (Negative) Urine Bilirubin Negative (Negative) Urine Urobilinogen <2.0 (<2.0) mg/dL Ur Leukocyte Esterase Negative (Negative) Stool Occult Blood (Negative) Blood Type Blood Type Recheck Antibody Screen Spec Expiration Date - Radiology Data Radiology results: report reviewed, image reviewed Disposition Clinical Impression: Abdominal pain Disposition: HOME SELF-CARE Condition: Stable Instructions: Abdominal Pain (ED) Additional Instructions: Please use medication as discussed. Please follow up with family doctor if symptoms have not improved over the next two days. Please return to the emergency room if your symptoms increase or worsen or for any other concerns. Referrals: Mishel Chance MD [Primary Care Provider] - 1-2 days Vivek Mesa MD [STAFF PHYSICIAN] - 1-2 days Time of Disposition: 13:49
[2017-09-28 11:40] LABS: Basophils # (A) 0.1 k/uL (0-0.2); Basophils % (A) 1 %; Eosinophils # (A) 0.2 k/uL (0-0.7); Eosinophils % (A) 2 %; HCT 52.1 % (39.0-53.0); HGB 17.2 gm/dL (13.0-17.5); Lymphocytes % (A) 26 %; MCH 31.6 pg (25.0-35.0); MCHC 33.1 g/dL (31.0-37.0); MCV 95.7 fL (80.0-100.0); Mean Platelet Volume 6.9; Monocytes # (A) 0.8 k/uL (0-1.0); Monocytes % (A) 7 %; Neutrophils # (A) 7.2 k/uL (1.3-7.7); Neutrophils % (A) 63 %; Platelet Count 277 k/uL (150-450); RBC 5.45 m/uL (4.30-5.90); RDW 12.4 % (11.5-15.5); WBC 11.5 k/uL (3.8-10.6)
[2017-09-28 11:41] LABS: Appearance,Urine Clear (Clear); Bilirubin,Urine Negative (Negative); Blood,Urine Negative (Negative); Color,Urine Yellow; Glucose,Urine (UA) Negative (Negative); Ketones,Urine Negative (Negative); Leukocyte Esterase,Urine Negative (Negative); Nitrite,Urine Negative (Negative); PH, Urine 7.5 (5.0-8.0); Protein,Urine Negative (Negative); Specific Gravity,Urine 1.006 (1.001-1.035); Urobilinogen,Urine <2.0 mg/dL (<2.0)
[2017-09-28 11:53] LABS: ALT 36 U/L (21-72); AST 20 U/L (17-59); Albumin 4.1 g/dL (3.5-5.0); Alkaline Phosphatase 63 U/L (38-126); Anion Gap 9 mmol/L; Blood Urea Nitrogen 10 mg/dL (9-20); Calcium 10.1 mg/dL (8.4-10.2); Carbon Dioxide 26 mmol/L (22-30); Chloride 105 mmol/L (98-107); Glucose 89 mg/dL (74-99); Potassium 4.5 mmol/L (3.5-5.1); Sodium 140 mmol/L (137-145); Total Bilirubin 0.5 mg/dL (0.2-1.3)
[2017-09-28 12:44] LABS: INR 1.1 (<1.2); Partial Thromboplastin Time 24.5 sec (22.0-30.0); Prothrombin Time 10.5 sec (9.0-12.0)
[2017-09-28 12:53] VITALS: PULSE 68; RESP 20
--- NOTE | 2017-09-28 13:45 | CT ---
EXAMINATION TYPE: CT abdomen pelvis w con DATE OF EXAM: 09/28/2017 COMPARISON: NONE INDICATION: RLQ pain DLP: 1040.9 mGycm, Automated exposure control for dose reduction was used. CONTRAST: 100 mL of Omnipaque 300. Study performed without Oral Contrast TECHNIQUE: Axial images were obtained from above the diaphragm to the pubic rami in the axial plane a t 5 mm thick sections. Reconstructed images are reviewed on the computer in the coronal plane. FINDINGS: Limited CT sections are obtained the lung bases. The lung bases are clear. CT ABDOMEN: Liver: There is mild fatty infiltration of liver. Spleen: Normal Pancreas: Normal Adrenal glands: The adrenal glands are normal. Gallbladder: Surgically absent. Kidneys: No masses are evident. No hydronephrosis is present. No cysts are present. Delayed images were obtained through the kidneys, which remain unremarkable. Aorta: Vascular calcification is within the aorta. Inferior vena cava: Normal. CT PELVIS: Loops of bowel within the abdomen and pelvis are normal. There are loops of bowel which are incom pletely distended or lack oral contrast limiting their evaluation. Appendix: Normal as visualized. Urinary bladder: Normal. Genitourinary structures: Prostate appears normal. Osseous structures: No suspicious lytic or sclerotic lesions. Facet changes are in the lower lumbar s pine. IMPRESSIONS: 1. No acute abdominal process. 2. Normal appendix.
[2017-09-28 14:08] VITALS: BP 140/70
== END 2017-09-28 14:07 | disposition home or self-care (01) ==
LOC: EC 10:21
DX: R10.9 Unspecified abdominal pain (principal); R50.9 Fever, unspecified; F17.200 Nicotine dependence, unspecified, uncomplicated; Z90.49 Acquired absence of other specified parts of digestive tract
CPT/HCPCS: 36415; 86900; 86901; 80053; 83605; 85025; 85610; 85730; 86850; 82272; 81003; 87045; 87046; 74177; 99284; Q9967

== ENCOUNTER 2020-08-16 12:16 | Emergency (ER) | payer OTHER ==
[2020-08-16 12:23] VITALS: BP 141/91; PULSE 80; RESP 20; TEMP 98.4
[2020-08-16] MEDS ORDERED: LACOSAMIDE 50 MG TABLET PO STA ×2 (12:57→13:07)
[2020-08-16] MEDS ORDERED: LACOSAMIDE 150 MG TABLET PO STA ×2 (12:57→13:08)
--- NOTE | 2020-08-16 13:03 | ED ---
General Adult HPI - General Chief complaint: Recheck/Abnormal Lab/Rx Stated complaint: Medication Refill Source: patient Mode of arrival: ambulatory Limitations: no limitations - History of Present Illness Initial comments: Patient is a 50-year-old male past medical history of seizure disorder who presents emergency Department with request to have his medication dispensed. Family is at bedside and reports that the patient is on 3 antiepileptic medications. 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 They do have a prescription however the pharmacy states they would not have the medication until tomorrow. He has been out of his medications for the past 3 days and they're concerned he is given had a seizure. They are requesting that the medication be dispensed today and that I also provided them with a few days' worth of the medication. The patient sees Dr. Saleem. He has not had any seizure activity since earlier this year. No fevers or chills. Denies any headaches or sensation that a seizure is going to come on. No other alleviating, precipitating or modifying factors - Related Data Previous Rx's Medication Instructions Recorded Lacosamide [Vimpat] 200 mg PO BID #10 tab 08/16/20 Allergies Allergy/AdvReac Type Severity Reaction Status Date / Time No Known Allergies Allergy Verified 08/16/20 12:23 Review of Systems ROS Statement: Those systems with pertinent positive or pertinent negative responses have been documented in the HPI. ROS Other: All systems not noted in ROS Statement are negative. Past Medical History Past Medical History: Osteoarthritis (OA), Renal Disease, Seizure Disorder Additional Past Medical History / Comment(s): Ibs, degenerative disc disease, BACK PAIN, PAST FX L4-L5 VERTEBRE, KIDNEY STONE,HEAD INJURY/CONCUSSION, SEIZURES- BUT HAS'NT BEEN TAKING MEDS(D/T FINANCIAL REASON/COST), RECENTLY FINISHED 7 DAYS OF CIPRO FOR KIDNEY STONE?UTI,lt.index finger wound History of Any Multi-Drug Resistant Organisms: None Reported Past Surgical History: Cholecystectomy, Orthopedic Surgery Additional Past Surgical History / Comment(s): LT KNEE SCOPE,COLONOSCPY/POLYPECTOMT(BENIGN) Past Anesthesia/Blood Transfusion Reactions: No Reported Reaction Past Psychological History: Depression, PTSD Smoking Status: Current every day smoker Past Alcohol Use History: Occasional Past Drug Use History: Marijuana - Past Family History Father Family Medical History: Diabetes Mellitus, Hyperlipidemia, Hypertension Mother Additional Family Medical History / Comment(s): ? ANUERYSM General Exam Limitations: no limitations Course Vital Signs 08/16/20 12:21 Temperature 98.4 F Pulse Rate 80 Respiratory 20 Rate Blood Pressure 141/91 O2 Sat by Pulse 999 H Oximetry Medical Decision Making - Medical Decision Making Upon arrival patient is placed in room 21. A thorough history and physical exam was performed. Patient was dispenses Vimpat 200 mg. Patient is requesting 2 additional doses to take home. Since it is a controlled substance I informed the patient will be unable to do this. I do obtain one dose for which the patient is to take home. I will provide the patient with an additional prescription in the event that he cannot obtain his medication tomorrow. This medication is for 5 days. If the patient has any new or worsening issues she should return to the emergency room. Patient is family member were in agreement with this plan and the patient was discharged with stable condition Disposition Clinical Impression: Seizure disorder Disposition: HOME SELF-CARE Condition: Stable Instructions (If sedation given, give patient instructions): Epilepsy (ED) Additional Instructions: Please follow up with Dr. Saleem in regards to your seizures. Return to the ED for any new or worsening symptoms. Prescriptions: Lacosamide [Vimpat] 200 mg PO BID #10 tab Is patient prescribed a controlled substance at d/c from ED?: No Referrals: [facility],Clinic [Primary Care Provider] - 1-2 days Kumar Saleem MD [Medical Doctor] - 1-2 days Time of Disposition: 13:03
== END 2020-08-16 13:21 | disposition home or self-care (01) ==
LOC: EC 12:16
DX: Z76.0 Encounter for issue of repeat prescription (principal); G40.909 Epilepsy, unspecified, not intractable, without status epilepticus; F17.200 Nicotine dependence, unspecified, uncomplicated; Z90.49 Acquired absence of other specified parts of digestive tract
CPT/HCPCS: 99281

== ENCOUNTER → 2020-12-25 | Outpatient (CLI) | payer OTHER ==
--- NOTE | 2020-12-25 10:51 | FL ---
Modified barium swallow. HISTORY: Dysphagia. Modified barium swallow was performed with the department of speech pathology. The patient was prese nted with various consistencies of barium. There is no evidence for aspiration or penetration. Full report is to follow from the department of speech pathology. Impression: Normal study.
== END | disposition home or self-care (01) ==
LOC: RADFLMAIN 10:08
PROVIDERS: ATTEND Physician Assistant
DX: R13.10 Dysphagia, unspecified (principal)
CPT/HCPCS: 74230

== ENCOUNTER → 2021-05-06 | Outpatient (CLI) | payer OTHER ==
--- NOTE | 2021-05-06 12:08 | CTL ---
EXAMINATION TYPE: CT Low Dose Lung DATE OF EXAM ORDERED: 05/06/2021 COMPARISON: None HISTORY: . Low Dose CT Lung Screening CT DLP: [address] CTDI: 1.91 mGy IV CONTRAST USED: None. SCREENING VISIT: First visit COMPARISON: None. TECHNIQUE: Low dose computed tomography scan was performed through the chest at 1 millimeter thick se ctions and reconstructed images in the coronal plane at [address] DIAGNOSTIC QUALITY: Satisfactory FINDINGS: LUNG NODULES: Not presentLeft lung: no nodules identified.Right lung: no nodules identified. LUNGS: COPD: Severity: Mild. Triangular-shaped parenchymal scar right upper lobe. Fibrosis: Severity:None Lymph nodes: None Other findings: None RIGHT PLEURAL SPACE: Effusion: None Calcification: None Thickening: None Pneumothorax: None LEFT PLEURAL SPACE: Effusion: None Calcification: None Thickening: None Pneumothorax: None HEART: Heart Size: Mildly enlarged Coronary calcification: Mild Pericardial effusion: None OTHER FINDINGS: Upper abdomen: No significant abnormality Bony thorax: Degenerative changes Supraclavicular region: No significant abnormalityOther: No significant abnormalityI IMPRESSION: No distinct pulmonary nodularity appreciated. FOLLOW UP CT CHEST RECOMMENDATION: Follow-up screening in one year CT LUNG RAD: LUNG RAD CATEGORY 1 negative
== END | disposition home or self-care (01) ==
LOC: RADCTMAIN 11:19
PROVIDERS: ATTEND Physician Assistant
DX: Z12.2 Encounter for screening for malignant neoplasm of respiratory organs (principal)
CPT/HCPCS: 71271

== ENCOUNTER 2022-03-03 11:19 | Emergency (ER) | payer OTHER ==
[2022-03-03 11:44] VITALS: RESP 18; TEMP 98.4
[2022-03-03 12:25] LABS: Basophils # (A) 0.1 k/uL (0-0.2); Basophils % (A) 1 %; Eosinophils # (A) 0.2 k/uL (0-0.7); Eosinophils % (A) 2 %; HCT 46.3 % (39.0-53.0); HGB 15.5 gm/dL (13.0-17.5); Lymphocytes # (A) 2.1 k/uL (1.0-4.8); Lymphocytes % (A) 26 %; MCH 31.5 pg (25.0-35.0); MCHC 33.6 g/dL (31.0-37.0); MCV 93.7 fL (80.0-100.0); Mean Platelet Volume 7.5; Monocytes # (A) 0.6 k/uL (0-1.0); Monocytes % (A) 8 %; Neutrophils # (A) 4.9 k/uL (1.3-7.7); Neutrophils % (A) 62 %; Platelet Count 274 k/uL (150-450); RBC 4.94 m/uL (4.30-5.90); RDW 12.3 % (11.5-15.5)
[2022-03-03 12:38] LABS: Partial Thromboplastin Time 25.6 sec (22.0-30.0); Prothrombin Time 10.8 sec (9.0-12.0)
[2022-03-03 12:48] LABS: African American GFR (CKD) >90 (>60 ml/min/1.73 sqM); Anion Gap 7 mmol/L; Blood Urea Nitrogen 8 mg/dL (9-20); Calcium 9.6 mg/dL (8.4-10.2); Carbon Dioxide 24 mmol/L (22-30); Chloride 108 mmol/L (98-107); Glucose 90 mg/dL (74-99); Non-African American GFR(CKD) >90 (>60 ml/min/1.73 sqM); Sodium 139 mmol/L (137-145)
[2022-03-03 12:51] LABS: Potassium 4.5 mmol/L (3.5-5.1)
--- NOTE | 2022-03-03 12:52 | ED ---
General Adult HPI - General Chief complaint: GI Bleed Stated complaint: Rectal bleeding Time Seen by Provider: 03/03/22 11:35 Source: patient Mode of arrival: ambulatory Limitations: no limitations - History of Present Illness Initial comments: Dictation was produced using get2play dictation software. please excuse any grammatical, word or spelling errors. Chief Complaint: 51-year-old male presents to the emergency department for her primary blood per rectum History of Present Illness: 81-year-old male presents emergency department for prior blood per rectum. Patient states he noted that he was having bleeding in his stool started yesterday. Patient has any abdominal pain. No rectal pain. Patient does not have a history of GI bleed. His uptake any anticoagulation medications. Patient denies any history of GI bleed however there does appear to be some documentation of a polypectomy from a colonoscopy. Patient denies a ny lightheadedness. The ROS documented in this emergency department record has been reviewed and c onfirmed by me. Those systems with pertinent positive or negative responses have been documented in the HPI. All other systems are other negative and/or noncontributory. PHYSICAL EXAM: General Impression: Alert and oriented x3, not in acute distress HEENT: Normocephalic atraumatic, extra-ocular movements intact, pupils equal and reactive to light bilaterally, mucous membranes moist. Cardiovascular: Heart regular rate and rhythm Chest: Able to complete full sentences, no retractions, no tachypnea Abdomen: abdomen soft, non-tender, non-distended, no organomegaly Musculoskeletal: Pulses present and equal in all extremities, no peripheral edema Motor: no focal deficits noted Neurological: CN II-XII grossly intact, no focal motor or sensory deficits noted Skin: Intact with no visualized rashes Psych: Normal affect and mood Rectal exam: No gross blood, no melanotic residue, no source of bleeding ED course: 51-year-old male presents to the emergency department for 1-2 days of bright blood per rectum. Vital signs upon arrival are within acceptable limits. Patient denies any abdominal symptoms. No rectal symptoms. Rectal exam is unremarkable. Laboratory evaluation obtained. CBC unremarkable. Coag panel is negative. Metabolic panel is negative. So-called blood is negative. Patient observed in emergency department for approximately 2 hours. Reevaluated bedside at 1:00 and found to be stable medical condition. During patient's ER observation did not have any repeat episodes of GI bleed.Disposition were discussed. Patient agreeable with discharge with outpatient follow-up and strict return precautions. - Related Data Previous Rx's Medication Instructions Recorded Lacosamide [Vimpat] 200 mg PO BID #10 tab 08/16/20 Pantoprazole [Protonix] 40 mg PO DAILY 14 Days #14 tab 03/03/22 Allergies Allergy/AdvReac Type Severity Reaction Status Date / Time No Known Allergies Allergy Verified 03/03/22 11:44 Review of Systems ROS Statement: Those systems with pertinent positive or pertinent negative responses have been documented in the HPI. ROS Other: All systems not noted in ROS Statement are negative. Past Medical History Past Medical History: CVA/TIA, Osteoarthritis (OA), Renal Disease, Seizure Disorder Additional Past Medical History / Comment(s): Ibs, degenerative disc disease, BACK PAIN, PAST FX L4-L5 VERTEBRE, KIDNEY STONE,HEAD INJURY/CONCUSSION, SEIZURES- BUT HAS'NT BEEN TAKING MEDS(D/T FINANCIAL REASON/COST), RECENTLY FIN ISHED 7 DAYS OF CIPRO FOR KIDNEY STONE?UTI,lt.index finger wound. CVA 2020 History of Any Multi-Drug Resistant Organisms: None Reported Past Surgical History: Cholecystectomy, Orthopedic Surgery Additional Past Surgical History / Comment(s): LT KNEE SCOPE,COLONOSCPY/POLYPECTOMT(BENIGN) Past Anesthesia/Blood Transfusion Reactions: No Reported Reaction Past Psychological History: Depression, PTSD Smoking Status: Current every day smoker Past Alcohol Use History: None Reported Past Drug Use History: Marijuana - Past Family History Father Family Medical History: Diabetes Mellitus, Hyperlipidemia, Hypertension Mother Additional Family Medical History / Comment(s): ? ANUERYSM General Exam Limitations: no limitations Course Vital Signs 03/03/22 11:40 Temperature 98.4 F Pulse Rate 77 Respiratory 18 Rate Blood Pressure 165/97 O2 Sat by Pulse 99 Oximetry Medical Decision Making - Lab Data Result diagrams: 03/03/22 12:06 03/03/22 12:06 Lab Results 03/03/22 03/03/22 03/03/22 Range/Units 12:06 12:06 12:06 WBC 8.0 (3.8-10.6) k/uL RBC 4.94 (4.30-5.90) m/uL Hgb 15.5 (13.0-17.5) gm/dL Hct 46.3 (39.0-53.0) % MCV 93.7 (80.0-100.0) fL MCH 31.5 (25.0-35.0) pg MCHC 33.6 (31.0-37.0) g/dL RDW 12.3 (11.5-15.5) % Plt Count 274 (150-450) k/uL MPV 7.5 Neutrophils % 62 % Lymphocytes % 26 % Monocytes % 8 % Eosinophils % 2 % Basophils % 1 % Neutrophils # 4.9 (1.3-7.7) k/uL Lymphocytes # 2.1 (1.0-4.8) k/uL Monocytes # 0.6 (0-1.0) k/uL Eosinophils # 0.2 (0-0.7) k/uL Basophils # 0.1 (0-0.2) k/uL PT 10.8 (9.0-12.0) sec INR 1.0 (<1.2) APTT 25.6 (22.0-30.0) sec Sodium (137-145) mmol/L Potassium (3.5-5.1) mmol/L Chloride (98-107) mmol/L Carbon Dioxide (22-30) mmol/L Anion Gap mmol/L BUN (9-20) mg/dL Creatinine (0.66-1.25) mg/dL Est GFR (CKD-EPI)AfAm (>60 ml/min/1.73 sqM) Est GFR (CKD-EPI)NonAf (>60 ml/min/1.73 sqM) Glucose (74-99) mg/dL Calcium (8.4-10.2) mg/dL Stool Occult Blood Negative (Negative) Blood Type Blood Type Recheck Bld Type Recheck Status Spec Expiration Date 03/03/22 03/03/22 Range/Units 12:06 12:06 WBC (3.8-10.6) k/uL RBC (4.30-5.90) m/uL Hgb (13.0-17.5) gm/dL Hct (39.0-53.0) % MCV (80.0-100.0) fL MCH (25.0-35.0) pg MCHC (31.0-37.0) g/dL RDW (11.5-15.5) % Plt Count (150-450) k/uL MPV Neutrophils % % Lymphocytes % % Monocytes % % Eosinophils % % Basophils % % Neutrophils # (1.3-7.7) k/uL Lymphocytes # (1.0-4.8) k/uL Monocytes # (0-1.0) k/uL Eosinophils # (0-0.7) k/uL Basophils # (0-0.2) k/uL PT (9.0-12.0) sec INR (<1.2) APTT (22.0-30.0) sec Sodium 139 (137-145) mmol/L Potassium 4.5 (3.5-5.1) mmol/L Chloride 108 H (98-107) mmol/L Carbon Dioxide 24 (22-30) mmol/L Anion Gap 7 mmol/L BUN 8 L (9-20) mg/dL Creatinine 0.77 (0.66-1.25) mg/dL Est GFR (CKD-EPI)AfAm >90 (>60 ml/min/1.73 sqM) Est GFR (CKD-EPI)NonAf >90 (>60 ml/min/1.73 sqM) Glucose 90 (74-99) mg/dL Calcium 9.6 (8.4-10.2) mg/dL Stool Occult Blood (Negative) Blood Type A Positive Blood Type Recheck A Pos Bld Type Recheck Status No Spec Expiration Date 03/06/20222305 Disposition Clinical Impression: GI bleed Disposition: HOME SELF-CARE Condition: Fair Instructions (If sedation given, give patient instructions): Gastrointestinal Bleeding (ED) Prescriptions: Pantoprazole [Protonix] 40 mg PO DAILY 14 Days #14 tab Is patient prescribed a controlled substance at d/c from ED?: No Referrals: [facility],Clinic [Primary Care Provider] - 1-2 days Negin Quintanilla MD [STAFF PHYSICIAN] - 1-2 days Time of Disposition: 13:10
[2022-03-03 13:44] VITALS: BP 151/90; PULSE 78
== END 2022-03-03 13:43 | disposition home or self-care (01) ==
LOC: EC 11:19
DX: K92.2 Gastrointestinal hemorrhage, unspecified (principal); F17.200 Nicotine dependence, unspecified, uncomplicated; Z86.73 Personal history of transient ischemic attack (TIA), and cerebral infarction without residual deficits
CPT/HCPCS: 36415; 80048; 82272; 85025; 85610; 85730; 86850; 86900; 86901; 93005; 99285

== ENCOUNTER 2023-02-03 12:31 | Day surgery (SDC) | payer OTHER ==
[2023-02-03] MEDS ORDERED: LACTATED RINGERS 1,000 ML IV SCH (13:49)
[2023-02-03 13:54] VITALS: TEMP 98
[2023-02-03] MEDS ORDERED: PROPOFOL 10 MG/ML 20 ML VIAL IV ONE (14:41)
--- NOTE | 2023-02-03 15:05 | P.PCN ---
Date of Procedure: 02/03/23 Procedure(s) Performed: BRIEF HISTORY: Patient is a 52-year-old pleasant white male scheduled for an elective colonoscopy as a part of value should of blood in the stool PROCEDURE PERFORMED: Colonoscopy snare polypectomy. PREOPERATIVE DIAGNOSIS: Blood in the stool. IV sedation per Anesthesia. PROCEDURE: After informed consent was obtained, the patient, was brought into the endoscopy unit. IV sedation was administered by Anesthesia under continuous monitoring. Digital rectal examination was normal. Initially the Olympus CF-160 flexible video colonoscope was then inserted in the rectum, gradually advanced into the cecum without any difficulty. Careful examination was performed as the scope was gradually being withdrawn. Ileocecal valve and the appendiceal orifice were visualized and appeared normal. Prep was excellent. Mucosa of the cecum, normal. In the setting colon there was a 2 cm broad-based polyp removed by piecemeal snare polypectomy and complete polypectomy accomplished. Rest of the ascending colon, transverse colon, descending colon, sigmoid colon, and rectum appeared normal. Retroflexion was performed in the rectum and no lesions were seen. The patient tolerated the procedure well. IMPRESSION: 2 cm broad-based ascending colon polyp status post polypectomy and complete polypectomy accomplished Rest of the colon appeared normal RECOMMENDATIONS: Findings of this examination were discussed with the patient as well as his family. He was advised to follow with the biopsy result. If the biopsy results adenoma he can have a repeat colonoscopy in 3 years..
[2023-02-03 15:09] VITALS: PULSE 66; RESP 16
[2023-02-03 15:32] VITALS: BP 141/85
== END 2023-02-03 15:48 | disposition home or self-care (01) ==
LOC: ORWHC2ENDO 12:31
PROVIDERS: ATTEND Internal Medicine Gastroenterology
DX: K63.5 Polyp of colon (principal); K92.1 Melena; E78.5 Hyperlipidemia, unspecified; F32.A Depression, unspecified; M19.90 Unspecified osteoarthritis, unspecified site; G40.909 Epilepsy, unspecified, not intractable, without status epilepticus; Z79.82 Long term (current) use of aspirin; Z90.49 Acquired absence of other specified parts of digestive tract; Z98.890 Other specified postprocedural states; Z79.899 Other long term (current) drug therapy
CPT/HCPCS: 88305; 45385; J2704

== ENCOUNTER → 2023-07-12 | Outpatient (CLI) | payer OTHER ==
--- NOTE | 2023-07-13 08:24 | CTL ---
EXAMINATION TYPE: CT Low Dose Lung DATE OF EXAM ORDERED: 07/12/2023 HISTORY: Long-term tobacco use. Lung cancer screening. CT DLP: 86.[address] CTDI: 2.3 mGy Automated exposure control for dose reduction was used. SCREENING VISIT: First study after baseline COMPARISON: Prior study May 06, 2021 TECHNIQUE: Low dose computed tomography scan was performed through the chest at 1 mm thick sections a nd reconstructed images in multiple planes at 1 mm and [address] DIAGNOSTIC QUALITY: Satisfactory FINDINGS: LUNG NODULES: Present, detailed below: Scattered small nodules redemonstrated. There is 8 x 5 mm peripheral right lower lobe nodule axial image 204 stable from prior. There is stas cent 3 mm peripheral right lower lobe nodule axial image 209 that is stable. Stable 6 mm left upper l obe pulmonary nodule image 75. Stable 6 mm peripheral superior left upper lobe pulmonary nodule axial image 84. This there are 2 stable 4 to 5 mm peripheral nodules right middle lobe axial image 215. No new or enlarging greater than 5 mm pulmonary nodules LUNGS: COPD: Severity: Mild Fibrosis: Severity: None Lymph nodes: None Other findings: None RIGHT PLEURAL SPACE: Effusion: None Calcification: None Thickening: None Pneumothorax: None LEFT PLEURAL SPACE: Effusion: None Calcification: None Thickening: None Pneumothorax: None HEART: Heart Size: Normal Coronary Calcification: None Pericardial Effusion: None OTHER FINDINGS: Upper abdomen: None Bony thorax: S-shaped scoliosis with multilevel spurring in the spine. Supraclavicular region: None Other: None IMPRESSION: Stable small bilateral pulmonary nodules. No new or enlarging greater than [address] LUNG RAD AND CT CHEST RECOMMENDATION: Lung-Rad 2 Benign Appearance or Behavior: Continue annual sc reening with LDCT in 12 months. S Modifier (other clinically significant findings): None
== END | disposition home or self-care (01) ==
LOC: RADCTMAIN 13:55
DX: Z12.2 Encounter for screening for malignant neoplasm of respiratory organs (principal); F17.210 Nicotine dependence, cigarettes, uncomplicated; R91.8 Other nonspecific abnormal finding of lung field
CPT/HCPCS: 71271